=== PATIENT | female | born 1980 | race Caucasian/White ===

== ENCOUNTER 2017-02-21 12:26 | Emergency (ER) | payer SELFPAY ==
--- NOTE | 2017-02-21 12:51 | ED.PDOC ---
History of Present Illness - General Chief Complaint: Problem Stated Complaint: UTI sx's Time Seen by Provider: 02/21/17 12:50 Source: patient, RN notes reviewed, family Exam Limitations: no limitations Additional Information: Pt with symptoms concerning for a UTI. Denies fever and flank pain. - History of Present Illness Timing/Duration: yesterday Quality: moderate Onset Location: suprapubic Radiation: none Activites at Onset: none Improving Factors: nothing Worsening Factors: nothing Associated Symptoms: dysuria Allergies/Adverse Reactions: Allergies NO KNOWN ALLERGY Allergy (Unverified 09/04/12 23:25) Home Medications: Ambulatory Orders Phenazopyridine HCl [Azo Urinary Pain Relief] 95 mg PO TID 2 Days #6 tab Sulfa/Trimeth 800/160 (Ds) Tab [Bactrim DS Tab] 1 ea PO BID #10 tab 02/21/17 Review of Systems - Review of Systems Constitutional: States: no symptoms reported EENTM: States: no symptoms reported Respiratory: States: no symptoms reported Cardiology: States: no symptoms reported Gastrointestinal/Abdominal: States: no symptoms reported Genitourinary: States: see HPI, dysuria Musculoskeletal: States: no symptoms reported Skin: States: no symptoms reported Neurological: States: no symptoms reported Endocrine: States: no symptoms reported Hematologic/Lymphatic: States: no symptoms reported Past Medical History (General) - Patient Medical History Hx Stroke: No Hx Congestive Heart Failure: No Hx Diabetes: No Surgical History: no surgical history - Vaccination History Hx Tetanus, Diphtheria Vaccination: Yes Hx Influenza Vaccination: No Hx Pneumococcal Vaccination: No - Social History Hx Tobacco Use: Yes - Female History Patient is a Female of Child Bearing Age (10 -59 yrs old): Yes Patient : No Family Medical History - Family History Mother Family History: Unknown Living Status: Unknown Physical Exam - Physical Exam General Appearance: Alert, Comfortable, No apparent distress, Well Developed, Well Groomed, Well Hydrated, Well Nourished Eyes, Ears, Nose, Throat Exam: PERRL/EOMI, normal ENT inspection, pharynx normal Neck: non-tender, full range of motion, supple, normal inspection Cardiovascular/Respiratory: normal peripheral pulses, no respiratory distress Gastrointestinal/Abdominal: non tender, soft Back Exam: normal inspection, no CVA tenderness, no vertebral tenderness Extremity: normal range of motion, non-tender, normal inspection, no pedal edema 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 Will treat UTI with abx. Pt reports no insurance. Will start with Bactrim and f/u on culture results. Pt advised to stay well hydrated and she was given strict return precautions. - Results/Orders Results/Orders: 02/21/17 12:50 URINE CULTURE W/COLONY COUNT Stat Laboratory Results - last 24 hr 02/21/17 12:50 Urine Color Red H Urine Appearance Cloudy Urine pH 7.5 Ur Specific [place] 1.020 Urine Protein 100 H Urine Glucose (UA) Negative Urine Ketones Trace Urine Blood Large H Urine Nitrite Positive H Urine Bilirubin Negative Urine Urobilinogen 4.0 H Ur Leukocyte Esterase Large H Urine RBC Obscured by wbc's H Urine WBC Tntc H Ur Epithelial Cells 0 Urine Bacteria Obscured by wbc's H Urine Culture - Pending Departure - Departure Clinical Impression: Urinary tract infection Qualifiers: Urinary tract infection type: acute cystitis Hematuria presence: without hematuria Qualified Code(s): N30.00 - Acute cystitis without hematuria Time of Disposition: 13:52 Disposition: Discharge to Home or Self Care Condition: Fair Departure Forms: ED Discharge - Pt. Copy, ED Discharge - Work Release, Patient Portal Self Enrollment Instructions: DI for Urinary Tract Infection (UTI) Prescriptions: Phenazopyridine HCl [Azo Urinary Pain Relief] 95 mg PO TID 2 Days #6 tab Sulfa/Trimeth 800/160 (Ds) Tab [Bactrim DS Tab] 1 ea PO BID #10 tab Home Medications: Ambulatory Orders Phenazopyridine HCl [Azo Urinary Pain Relief] 95 mg PO TID 2 Days #6 tab Sulfa/Trimeth 800/160 (Ds) Tab [Bactrim DS Tab] 1 ea PO BID #10 tab 02/21/17 Additional Instructions: No work for 2 days - February and Saturday. Take medicine as prescribed. Stay well hydrated. Return to ER if condition worsens - fever, chills, nausea, vomiting, flank pain.
[2017-02-21 13:26] VITALS: TEMP 98.3
[2017-02-21 14:01] VITALS: BP 114/77; O2SAT 99
== END 2017-02-21 14:01 | disposition home or self-care (01) ==
LOC: ER 12:26
DX: N30.00 Acute cystitis without hematuria (principal); F17.200 Nicotine dependence, unspecified, uncomplicated

== ENCOUNTER 2017-04-30 09:11 | Emergency (ER) | payer SELFPAY ==
[2017-04-30 09:23] VITALS: BP 105/57; TEMP 99.1; O2SAT 98
--- NOTE | 2017-04-30 09:39 | ED.PDOC ---
History of Present Illness - General Chief Complaint: ENT Problem Stated Complaint: sorethroat Time Seen by Provider: 04/30/17 09:28 Source: patient - History of Present Illness Initial Comments: the patient is a 36-year-old female presenting to the emergency room secondary to sore throat and runny nose, fever for the last 3 days. Mild body aches. No sent. Near syncope. No history of any immunocompromise. She does currently have some seasonal allergies. Severity: moderate Improving Factors: nothing Worsening Factors: nothing Associated Symptoms: denies symptoms Allergies/Adverse Reactions: Allergies NO KNOWN ALLERGY Allergy (Verified 04/30/17 09:23) Home Medications: Ambulatory Orders Phenazopyridine HCl [Azo Urinary Pain Relief] 95 mg PO TID 2 Days #6 tab Sulfa/Trimeth 800/160 (Ds) Tab [Bactrim DS Tab] 1 ea PO BID #10 tab 02/21/17 levoFLOXacin [Levaquin] 500 mg PO DAILY #5 tab 04/30/17 Review of Systems - Review of Systems Constitutional: States: fever, malaise EENTM: States: nose congestion, throat pain Respiratory: States: cough Cardiology: States: no symptoms reported Gastrointestinal/Abdominal: States: no symptoms reported Genitourinary: States: no symptoms reported Musculoskeletal: States: no symptoms reported Skin: States: no symptoms reported Neurological: States: no symptoms reported All other Systems: No Change from Baseline Past Medical History (General) - Patient Medical History Hx Stroke: No Hx Congestive Heart Failure: No Hx Diabetes: No Surgical History: no surgical history - Vaccination History Hx Tetanus, Diphtheria Vaccination: Yes Hx Influenza Vaccination: No Hx Pneumococcal Vaccination: No - Social History Hx Tobacco Use: Yes Hx Alcohol Use: No - Female History Patient is a Female of Child Bearing Age (10 -59 yrs old): Yes Patient : No - Triage Comment ED Triage Comment: LMP "2 weeks ago" Family Medical History - Family History Mother Family History: Unknown Living Status: Unknown Physical Exam - Physical Exam General Appearance: Alert, No apparent distress Eye Exam: bilateral normal Ears, Nose, Throat: nasal congestion, pharyngeal erythema Neck: full range of motion, supple Respiratory: no respiratory distress, no accessory muscle use, other - the patient does have some right lower lobe rales Cardiovascular/Chest: normal peripheral pulses, regular rate, rhythm, no edema Peripheral Pulses: radial,right: 2+, radial,left: 2+, dorsalis pedis,right: 2+, dorsalis pedis,left: 2+ Gastrointestinal/Abdominal: non tender, soft Rectal Exam: deferred Back Exam: normal inspection, no CVA tenderness, no vertebral tenderness Extremity: normal range of motion, non-tender, normal inspection, no pedal edema , normal capillary refill 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 This is possibly viral however given that the patient does have some right lower lobe rales the patient will be covered with an antibiotic in the form of Levaquin for the next 5 days. She can use Motrin as needed to help reduce pharyngitis symptoms. She can take Zyrtec twice daily for the next week or so to help reduce her runny nose and she can additionally use Rhinocort or Flonase twice daily for the next week or 2 to help reduce her runny nose. She needs to keep her self well- hydrated. ER warnings were given. No flu tests are available. She is likely passed the point of benefit from Tamiflu even if it were the flu. Departure - Departure Clinical Impression: Respiratory tract infection Disposition: Discharge to Home or Self Care Condition: Fair Departure Forms: ED Discharge - Pt. Copy, Patient Portal Self Enrollment Instructions: DI for Pharyngitis/Tonsillopharyngitis -- Adult Diet: regular diet Activity: increase activity as tolerated Prescriptions: levoFLOXacin [Levaquin] 500 mg PO DAILY #5 tab Home Medications: Ambulatory Orders Phenazopyridine HCl [Azo Urinary Pain Relief] 95 mg PO TID 2 Days #6 tab Sulfa/Trimeth 800/160 (Ds) Tab [Bactrim DS Tab] 1 ea PO BID #10 tab 02/21/17 levoFLOXacin [Levaquin] 500 mg PO DAILY #5 tab 04/30/17 Additional Instructions: the patient is a 36-year-old female presenting to the emergency room secondary to symptoms of a respiratory tract infection. This is possibly viral however given that the patient does have some right lower lobe rales the patient will be covered with an antibiotic in the form of Levaquin for the next 5 days. She can use Motrin as needed to help reduce pharyngitis symptoms. She can take Zyrtec twice daily for the next week or so to help reduce her runny nose and she can additionally use Rhinocort or Flonase twice daily for the next week or 2 to help reduce her runny nose. She needs to keep her self well- hydrated. ER warnings were given.
== END 2017-04-30 09:45 | disposition home or self-care (01) ==
LOC: ER 09:11
DX: J06.9 Acute upper respiratory infection, unspecified (principal); Z87.891 Personal history of nicotine dependence

== ENCOUNTER 2020-02-05 13:14 | Emergency (ER) | payer SELFPAY | END 2020-02-05 18:06 | disposition left against medical advice (07) | LOC: ER 13:14 | DX: R39.15 Urgency of urination (principal); Z53.21 Procedure and treatment not carried out due to patient leaving prior to being seen by health care provider ==

== ENCOUNTER 2020-02-05 18:57 | Emergency (ER) | payer SELFPAY ==
--- NOTE | 2020-02-05 19:03 | ED.PDOC ---
History of Present Illness - General Time Seen by Provider: 02/05/20 19:02 Source: patient - History of Present Illness Initial Comments: 39-year-old female who presents with chief complaint of pain with urination. Onset of symptoms yesterday, worsened further today. Reports only minimal suprapubic pain at rest. Reports moderate pressure-like suprapubic pain without radiation when she urinates. She has been taking [id number] Tylenol and ibuprofen with little relief. Denies any fevers, chills, hematuria, nausea/vomiting/diarrhea. Reports symptoms feel like UTI. States her last UTI was several years ago. Allergies/Adverse Reactions: Allergies NO KNOWN ALLERGY Allergy (Verified 04/30/17 09:23) Home Medications: Ambulatory Orders Phenazopyridine HCl [Azo Urinary Pain Relief] 95 mg PO TID 2 Days #6 tab 02/21/17 Sulfa/Trimeth 800/160 (Ds) Tab [Bactrim DS Tab] 1 ea PO BID #10 tab 02/21/17 levoFLOXacin [Levaquin] 500 mg PO DAILY #5 tab 04/30/17 Cephalexin Monohydrate [Keflex] 500 mg PO BID 5 Days #10 cap 02/05/20 Review of Systems - Review of Systems Review of Systems: 02/05/20 20:00 as per HPI All other Systems: Reviewed and Negative Past Medical History (General) - Patient Medical History Hx Stroke: No Hx Congestive Heart Failure: No Hx Diabetes: No - Vaccination History Hx Tetanus, Diphtheria Vaccination: Yes Hx Influenza Vaccination: No Hx Pneumococcal Vaccination: No - Social History Hx Tobacco Use: Yes Hx Alcohol Use: No - Female History Patient : No Family Medical History - Family History Mother Family History: Unknown Living Status: Unknown Physical Exam - Physical Exam General Appearance: Alert, Comfortable, No apparent distress Eye Exam: bilateral normal Ears, Nose, Throat: normal ENT inspection Respiratory: lungs clear, normal breath sounds, no respiratory distress Cardiovascular/Chest: normal peripheral pulses, regular rate, rhythm, no edema, no gallop, no JVD, no murmur Gastrointestinal/Abdominal: soft, tenderness - mild suprapubic ttp w/o guarding or rebound Back Exam: normal inspection, no CVA tenderness, no vertebral tenderness Extremity: normal inspection Neurologic: alert, normal mood/affect, oriented x 3 Skin Exam: normal color, warm/dry Progress - Progress Progress: 02/05/20 19:20 Dysuria -Suspect UTI most likely, consider also , interstitial cystitis, kidney stone, other -Obtain UA and hCG, Toradol 60 mg IM for pain 02/05/20 20:02 -Urinalysis is consistent with UTI. Discussed diagnosis with patient as well as treatment plan. Will give Rocephin 1 g IM in the ED and sent home with Keflex 500 mg p.o. twice daily for 5 days. Advised continued [id number] analgesics. Discharged home in good condition, return warnings discussed. Quinn Dhillon MD Billing #[id number] 02/05/20 19:19 URINE CULTURE W/COLONY COUNT Stat Laboratory Results - last 24 hr 02/05/20 02/05/20 19:19 19:19 Urine Color Yellow Urine Appearance Sl cloudy Urine pH 7.5 Ur Specific [place] 1.020 Urine Protein 30 Urine Glucose (UA) Negative Urine Ketones Negative Urine Blood Moderate H Urine Nitrite Positive H Urine Bilirubin Negative Urine Urobilinogen 4.0 H Ur Leukocyte Esterase Small H Urine RBC 10-20 H Urine WBC 5-10 H Ur Epithelial Cells 3-5 Urine Bacteria 1+ Urine HCG, Qual Negative Departure - Departure Clinical Impression: UTI (urinary tract infection) Qualifiers: Urinary tract infection type: acute cystitis Hematuria presence: without hematuria Qualified Code(s): N30.00 - Acute cystitis without hematuria Time of Disposition: 19:56 Disposition: Discharge to Home or Self Care Condition: Good Instructions: Urinary Tract Infection, Adult (DC) Diet: resume usual diet Activity: increase activity as tolerated Prescriptions: Cephalexin Monohydrate [Keflex] 500 mg PO BID 5 Days #10 cap Home Medications: Ambulatory Orders Phenazopyridine HCl [Azo Urinary Pain Relief] 95 mg PO TID 2 Days #6 tab 02/21/17 Sulfa/Trimeth 800/160 (Ds) Tab [Bactrim DS Tab] 1 ea PO BID #10 tab 02/21/17 levoFLOXacin [Levaquin] 500 mg PO DAILY #5 tab 04/30/17 Cephalexin Monohydrate [Keflex] 500 mg PO BID 5 Days #10 cap 02/05/20 Additional Instructions: The antibiotics as directed and finish the full course even if well. Remain well-hydrated. Continue take [id number] medications as needed for pain such as ibuprofen 600 mg every 6 hours as needed and Tylenol 650 mg every 6 hours as needed. Return if you develop worsening or other concerning symptoms. Otherwise follow-up with your regular doctor as scheduled or sooner as needed.
[2020-02-05] MEDS ORDERED: KETOROLAC TROMETHAMINE INJ 60 MG/2 ML VIAL IM ONE (19:55)
[2020-02-05] MEDS ORDERED: cefTRIAXone SODIUM 1 GM VIAL IM ONE (19:55)
[2020-02-05 20:17] VITALS: BP 113/99; TEMP 97.2; O2SAT 99
== END 2020-02-05 20:17 | disposition home or self-care (01) ==
LOC: ER 18:57
DX: N30.00 Acute cystitis without hematuria (principal); Z32.02 Encounter for pregnancy test, result negative; Z87.440 Personal history of urinary (tract) infections; Z87.891 Personal history of nicotine dependence
CPT/HCPCS: 81001; 81025; 87086; 87088; 87186; J0696; J1885